=== PATIENT | male | born 1940 | race Caucasian/White ===

== ENCOUNTER 2018-05-08 18:07 | Inpatient (IN) | payer MEDICARE, BC ==
[~2018-05-08] VITALS: Ht 172.7 cm; Wt 74.8 kg
[2018-05-08] MEDS ORDERED: ASPI81TA31 PO (18:24)
[2018-05-08] MEDS ORDERED: ATOR40TA PO (18:24)
[2018-05-08] MEDS ORDERED: OLME1TAB34 PO (18:24)
[2018-05-08] MEDS ORDERED: LANS30CA56 PO (18:24)
[2018-05-08] MEDS ORDERED: ALPR0.5T8 PO (18:24)
[2018-05-08] MEDS ORDERED: LORA2TAB95 PO (18:24)
[2018-05-08] MEDS ORDERED: SILO8CAP PO (18:24)
[2018-05-08] MEDS ORDERED: CARV12.5 PO (18:24)
--- NOTE | 2018-05-08 18:33 | NUR ---
Dr Amin at the bedside for MSE.
[2018-05-08] MEDS ORDERED: HYDROMORPHONE 1 MG/1 ML DISP.SYRIN ONE ×2 (18:41→20:57)
[2018-05-08] MEDS ORDERED: ONDANSETRON 4 MG/2 ML VIAL ONE (18:41)
[2018-05-08] MEDS ORDERED: ONDANSETRON 4 MG/2 ML VIAL IV ONE (18:45)
[2018-05-08] MEDS ORDERED: IV NORMAL SALINE 1000 ML BAG IV ONE (18:45)
[2018-05-08] MEDS ORDERED: HYDROMORPHONE 1 MG/1 ML DISP.SYRIN IV ONE ×2 (18:45→21:00)
[2018-05-08 18:48] LABS: BASOPHILS % (AUTO) 0.4 % (0.0-2.0); EOSINOPHILS % (AUTO) 0.3 % (0.0-7.0); HEMATOCRIT 37.4 % (36.7-47.1); HEMOGLOBIN 13.1 g/dL (12.5-16.3); LYMPHOCYTES # (AUTO) 0.6 K/uL (20.0-40.0); LYMPHOCYTES % (AUTO) 8.3 % (20.5-51.5); MEAN CORPUSCULAR HEMOGLOBIN 35.3 uug (23.8-33.4); MEAN CORPUSCULAR HGB CONC 35 g/dL (32.5-36.3); MEAN CORPUSCULAR VOLUME 100.7 fL (73.0-96.2); MONOCYTES # (AUTO) 0.7 K/uL (2.0-10.0); MONOCYTES % (AUTO) 9.5 % (0.0-11.0); NEUTROPHILS % (AUTO) 81.5 % (38.5-71.5); PLATELET COUNT (AUTO) 248 K/uL (152-348); RED BLOOD CELL COUNT(AUTO) 3.72 MIL/uL (4.06-5.63); WHITE BLOOD COUNT (AUTO) 7.3 K/uL (3.6-10.2)
[2018-05-08 18:53] LABS: CARBON DIOXIDE 25 mmol/L (21-32); CHLORIDE 92 mmol/L (98-107); GLUCOSE 118 mg/dL (74-106); POTASSIUM 3.7 mmol/L (3.5-5.1); UREA NITROGEN, BLOOD 10 mg/dL (7-18)
--- NOTE | 2018-05-08 18:55 | NUR ---
Pt out of ER for CT.
[2018-05-08 18:59] LABS: ALANINE AMINOTRANSFERASE 28 U/L (16-63); ALKALINE PHOSPHATASE 75 U/L (50-136); ASPARTATE AMINOTRANSFERASE 30 U/L (15-37); BILIRUBIN,DIRECT 0.2 mg/dL (0.0-0.2); BILIRUBIN,TOTAL 0.8 mg/dL (0.2-1.0); LIPASE 146 U/L (73-393); TOTAL PROTEIN, SERUM 7.7 g/dL (6.4-8.2)
--- NOTE | 2018-05-08 19:10 | NUR ---
REPORT RECEIVED FROM [facility] NURSEVANSEA
--- NOTE | 2018-05-08 20:22 | NUR ---
CALL PLACED TO GENERAL SURGEON MD BARRON
[2018-05-08] MEDS ORDERED: LIDOCAINE VISCUS 2% 15 ML UDC MM ONE (20:30)
[2018-05-08] MEDS ORDERED: LIDOCAINE 4% TOPICAL 50 ML BOTTLE TP ONE (20:30)
[2018-05-08] MEDS ORDERED: LIDOCAINE 4% TOPICAL 50 ML BOTTLE ONE (20:37)
[2018-05-08] MEDS ORDERED: LIDOCAINE VISCUS 2% 15 ML UDC ONE (20:37)
--- NOTE | 2018-05-08 20:50 | NUR ---
NG TUBE PLACED AND SET TO LOW INTERMITTENT SUCTION PER MD VERBAL ORDER.
--- NOTE | 2018-05-08 21:10 | NUR ---
REPORT GIVEN TO [facility] NURSEABIEL
[2018-05-08 21:16] LABS: *BILIRUBIN,URIN NEGATIVE (NEGATIVE); *BLOOD, URINE NEGATIVE (NEGATIVE); *CLARITY,URINE CLEAR (CLEAR); *COLOR,URINE YELLOW (YELLOW); *KETONES,URINE 2+ (NEGATIVE); *PROTEIN,URINE 2+ (NEGATIVE); *UROBILINOGEN,URINE 0.2 E.U./dl (NORMAL); LEUKOCYTE ESTERASE ,URINE NEGATIVE (NEGATIVE); NITRITE, URINE NEGATIVE (NEGATIVE); PH,URINE 6.5 (5.0-8.0); UGLUCOSE NEGATIVE (NEGATIVE)
[2018-05-08 21:26] LABS: MUCUS,URINE FEW /LPF (0-FEW); WBC,URINE 0-3 /HPF (0-3)
--- NOTE | 2018-05-08 21:30 | NUR ---
Pt. admitted to [facility], under care of Dr. SMITH Belongs List completed
[2018-05-08 22:04] VITALS: BP 147/94
[2018-05-08] MEDS ORDERED: ONDANSETRON 4 MG/2 ML VIAL IV PRN (22:15)
[2018-05-08] MEDS ORDERED: MORPHINE SULFATE 2 MG/1 ML DISP.SYRIN IV PRN (22:15)
[2018-05-08] MEDS ORDERED: HYDROCODONE/APAP 5-325MG TABLET PO PRN (22:15)
[2018-05-08] MEDS ORDERED: MAGNESIUM HYDROXIDE 30 ML LIQUID UDC PO PRN (22:15)
[2018-05-08] MEDS ORDERED: Z GUARD REMEDY PASTE 57 GM TUBE TOP PRN (22:15)
[2018-05-08] MEDS ORDERED: ZOLPIDEM 5 MG TABLET PO PRN (22:15)
[2018-05-08] MEDS ORDERED: ACETAMINOPHEN 325 MG TABLET PO PRN (22:15)
[2018-05-08] MEDS ORDERED: Medication Not On Formulary EA (Lorazepam (Ativan) 2 MG) PO SCH (22:15)
[2018-05-08] MEDS ORDERED: ALPRAZOLAM 0.5 MG TABLET PO SCH (22:15)
--- NOTE | 2018-05-08 22:35 | NUR ---
NGT hooked to low intermittent wall suction as ordered. Moderate amount light yellow to greenish color drainage noted.
[2018-05-08] MEDS: IV NS 1000 ML 1,000 ML IV SCH (23:42)
--- NOTE | 2018-05-08 23:43 | NUR ---
Kept NPO for possible procedure in AM, IVF NS at 100 ml/hr started. Ativan 1mg IVP adm per patient request. Kept comfortable. Assisted w/ all needs. Urinal at bedside.
--- NOTE | 2018-05-09 01:00 | NUR ---
patient sleeping comfortably, NGT to LIS in place.
[2018-05-09 05:01] VITALS: BP 156/75
--- NOTE | 2018-05-09 05:24 | NUR ---
Patient awake, NG-tube accidentally got dislodged, patient refused to have it re-inserted not unless liquid Viscus lidocaine be used so it will be painless. Paged Dr. Dover, received orders & carried out. Kept NPO, vital signs WNL.
[2018-05-09] MEDS ORDERED: LIDOCAINE 2% (UROJET) 10 ML JELLY MM ONE (05:35)
[2018-05-09 05:54] LABS: BASOPHILS % (AUTO) 0.6 % (0.0-2.0); EOSINOPHILS % (AUTO) 0.6 % (0.0-7.0); HEMATOCRIT 31.5 % (36.7-47.1); HEMOGLOBIN 11.2 g/dL (12.5-16.3); LYMPHOCYTES # (AUTO) 0.5 K/uL (20.0-40.0); LYMPHOCYTES % (AUTO) 7.3 % (20.5-51.5); MEAN CORPUSCULAR HEMOGLOBIN 35.4 uug (23.8-33.4); MEAN CORPUSCULAR HGB CONC 35 g/dL (32.5-36.3); MEAN CORPUSCULAR VOLUME 99.8 fL (73.0-96.2); MONOCYTES # (AUTO) 0.9 K/uL (2.0-10.0); MONOCYTES % (AUTO) 11.5 % (0.0-11.0); PLATELET COUNT (AUTO) 214 K/uL (152-348); RED BLOOD CELL COUNT(AUTO) 3.16 MIL/uL (4.06-5.63); WHITE BLOOD COUNT (AUTO) 7.5 K/uL (3.6-10.2)
[2018-05-09] MEDS ORDERED: LIDOCAINE VISCUS 2% 15 ML UDC MM SCH (06:00)
[2018-05-09 06:18] LABS: CARBON DIOXIDE 26 mmol/L (21-32); CHLORIDE 96 mmol/L (98-107); CHOLESTEROL 126 mg/dL (<200); GLUCOSE 111 mg/dL (74-106); HDL CHOLESTEROL 74 mg/dL (40-60); MAGNESIUM 1.3 mg/dL (1.8-2.4); PHOSPHOROUS 3.6 mg/dL (2.5-4.9); POTASSIUM 3.3 mmol/L (3.5-5.1); TRIGLYCERIDES 46 MG/DL (30-150); UREA NITROGEN, BLOOD 10 mg/dL (7-18)
--- NOTE | 2018-05-09 06:21 | NUR ---
Re-insertion of NGT Fr 18 done. STAT chest Xray was ordered for placement.
--- NOTE | 2018-05-09 06:30 | NUR ---
Placed back on NGT to LIS. No acute resp distress, vital signs WNL.
--- NOTE | 2018-05-09 07:30 | NUR ---
Awake, alert, oriented x 4. NGT to LIS with brownish output. Patient vernalized passing gas with hypoactive bowel sounds. NPO maintained. IVF infusing. For small bowel series.
[2018-05-09] MEDS ORDERED: DIATR MEGLU/DIATRIZOATE SODIUM 120 ML BOTTLE ONE (08:32)
[2018-05-09] MEDS: PANTOPRAZOLE SODIUM 40 MG TABLET.DR PO SCH (08:45)
[2018-05-09] MEDS ORDERED: MORPHINE SULFATE 4 MG/1 ML DISP.SYRIN IV PRN (08:45)
[2018-05-09] MEDS: IV NS 1000 ML 1,000 ML IV SCH (08:47)
[2018-05-09] MEDS ORDERED: Medication Not On Formulary EA (Olmesartan Med/Amlodipine/Hctz (Tribenzor 40-10-25 Mg Ta PO SCH (09:00)
[2018-05-09] MEDS ORDERED: Medication Not On Formulary EA (Lansoprazole 30 MG) PO SCH (09:00)
[2018-05-09] MEDS ORDERED: Medication Not On Formulary EA (Silodosin (Rapaflo) 8 MG) PO SCH (09:00)
[2018-05-09] MEDS: CARVEDILOL 12.5 MG TABLET PO SCH ×2 (09:00→17:00)
[2018-05-09] MEDS: ASPIRIN 81 MG TAB.CHEW PO SCH (09:00)
--- NOTE | 2018-05-09 09:00 | NUR ---
Small bowel series started. NGT clamped.
[2018-05-09] MEDS: MAGNESIUM SULFATE/D5W 100 ML IV SCH ×4 (09:33→13:35)
[2018-05-09 11:02] VITALS: BP 182/89
[2018-05-09] MEDS ORDERED: hydrALAZINE HCL 20 MG/1 ML VIAL IV ONE ×2 (11:30→12:00)
--- NOTE | 2018-05-09 12:20 | NUR ---
Elevated BP, Hydralazine 10 mg IV given.
[2018-05-09 15:42] VITALS: BP 178/89
[2018-05-09] MEDS: POTASSIUM CHLORIDE 50 ML IV SCH ×2 (15:59→17:03)
--- NOTE | 2018-05-09 16:00 | NUR ---
Dr. Matias seen patient with orders to connect back to suction to low continuous suction, able to drain 2 L greenish output. Last x ray of small bowel series done.
[2018-05-09] MEDS: hydrALAZINE HCL 20 MG/1 ML VIAL IV PRN ×2 (17:43→23:53)
--- NOTE | 2018-05-09 17:43 | NUR ---
Still with elevated BP. Small bowel series still with SBO, maintained on NPO. Hydralazine PRN given as ordered
--- NOTE | 2018-05-09 18:35 | NUR ---
NPO maintained. NGT to low continuous suction. IVF infusing. SCD applied to BLE
[2018-05-09 19:47] VITALS: BP 163/81
--- NOTE | 2018-05-09 20:00 | NUR ---
Patient received at bed, AAO X4. No sign of acute distress or SOB noted. Has NG tube, low continuous suctioning, draining green liquid. No complain of pain. IV fluids running on LT arm. SCD pump in placed. Continue to monitor.
[2018-05-09] MEDS ORDERED: ATORVASTATIN 40 MG TABLET PO SCH (21:00)
[2018-05-09] MEDS: LORAZEPAM 2 MG/1 ML VIAL IV PRN (22:09)
[2018-05-10] VITALS (7 sets, daily range): BP systolic 136–171; BP diastolic 62–80
[2018-05-10] MEDS: IV NS 1000 ML 1,000 ML IV SCH ×2 (00:54→05:30)
[2018-05-10 06:10] LABS: BASOPHILS % (AUTO) 0.2 % (0.0-2.0); HEMATOCRIT 38.2 % (36.7-47.1); HEMOGLOBIN 13.4 g/dL (12.5-16.3); LYMPHOCYTES # (AUTO) 0.7 K/uL (20.0-40.0); LYMPHOCYTES % (AUTO) 6.5 % (20.5-51.5); MEAN CORPUSCULAR HEMOGLOBIN 35.7 uug (23.8-33.4); MEAN CORPUSCULAR HGB CONC 35 g/dL (32.5-36.3); NEUTROPHILS # (AUTO) 8.4 K/uL (1.8-8.9); NEUTROPHILS % (AUTO) 83.3 % (38.5-71.5); PLATELET COUNT (AUTO) 274 K/uL (152-348); RED BLOOD CELL COUNT(AUTO) 3.74 MIL/uL (4.06-5.63); WHITE BLOOD COUNT (AUTO) 10.1 K/uL (3.6-10.2)
[2018-05-10] MEDS: hydrALAZINE HCL 20 MG/1 ML VIAL IV PRN (06:10)
[2018-05-10 06:13] LABS: CARBON DIOXIDE 25 mmol/L (21-32); CHLORIDE 99 mmol/L (98-107); GLUCOSE 123 mg/dL (74-106); MAGNESIUM 1.9 mg/dL (1.8-2.4); POTASSIUM 3.7 mmol/L (3.5-5.1); UREA NITROGEN, BLOOD 11 mg/dL (7-18)
[2018-05-10] MEDS: PANTOPRAZOLE SODIUM 40 MG TABLET.DR PO SCH (06:15)
--- NOTE | 2018-05-10 06:28 | NUR ---
HYDRALAZINE IV GIVEN FOR ELEVATED BP X2 DURING SHIFT. STILL NPO. CONTINUE ON LOW CONTINUES SUCTION VIA NGT. NO C/O PAIN. AMBULATED IN THE HALLWAY.
--- NOTE | 2018-05-10 07:26 | NUR ---
IV FLUIDS STILL INFUSING.
[2018-05-10] MEDS: ASPIRIN 81 MG TAB.CHEW PO SCH (08:51)
[2018-05-10] MEDS: CARVEDILOL 12.5 MG TABLET PO SCH ×2 (08:51→10:21)
--- NOTE | 2018-05-10 09:24 | NUR ---
DR BARRON HERE AND REVIEWED THE KUB RESULT AND STATED THAT PATIENT IS SCHEDULED FOR SURGERY IN ABOUT AN HOUR TODAY.PATIENT AWARE AND WILL OBTAIN CONSCENT.
--- NOTE | 2018-05-10 10:25 | NUR ---
BETA BLOCKED GIVEN ORDERED BLOOD PRESSURE IS 162/79 WITH A SIP OF WATER AND NGT CLAMPED AT THIS TIME
[2018-05-10] MEDS ORDERED: FENTANYL CITRATE 100 MCG/2 ML AMPUL ONE (10:39)
[2018-05-10] MEDS ORDERED: SUCCINYLCHOLINE CHLORIDE 200 MG/10 ML VIAL ONE (10:39)
[2018-05-10] MEDS ORDERED: MIDAZOLAM HCL 2 MG/2 ML VIAL ONE (10:39)
[2018-05-10] MEDS ORDERED: ROCURONIUM BROMIDE 50 MG/5 ML VIAL ONE (10:39)
--- NOTE | 2018-05-10 10:45 | NUR ---
PATIENT PICKED UP BY BED TO THE SURGERY DEPT ORDERED PATIENTS IS HERE AND PATIENT GAVE HER HIS PHONE AND UX UI DESIGNER AND STATED WILL KEEP IT WITH HER AND WILL RETURN BACK TO HIM AFTER HIS SURGERY.
[2018-05-10] MEDS ORDERED: METRONIDAZOLE 500 MG/NS 100ML 100 ML IV ONE (11:45)
[2018-05-10] MEDS ORDERED: BUPIVACAINE 0.25% 30 ML VIAL ONE (11:58)
[2018-05-10] MEDS ORDERED: IV D5W-0.45% NS +20 KCL 1,000 ML IV ONE (12:22)
[2018-05-10] MEDS ORDERED: MORPHINE SULFATE 4 MG/1 ML DISP.SYRIN IV PRN (13:15)
--- NOTE | 2018-05-10 13:20 | NUR ---
PATIENT RETURNED FROM SURGERY BY BED TO HIS ROOM AWAKE ALERT AND ORIENTED ON O2 AT 2L/M BY NASAL CANULLA WITH NO SHORTNESS OF BREATH AT THIS TIME NGT REMAINS IN PLACE WITH ORDER TO CONTINUE TO LOW GOMCO SUCTIONING HE NOW HAS A BARAJAS CATH INTACT WITH RADHA COLORED URINE NO HEMATURIA AT THIS TIME HE HAS 3 SCOPES SITES WITH BAND AIDE C/D/I AT THIS TIME REMAIN NPO PATIENT INSTRUCTED AND EDUCATED ON INCENTIVE SPIROMETER ORDERED MADE COMFORTABLE AND WILL CONTINUE TO OBSERVE.
--- NOTE | 2018-05-10 13:30 | NUR ---
NEW ORDERS PER DR. BARRON: INCENTIVE SPIROMETRY Q1HR WHILE AWAKE, BARAJAS CATHETER TO GRAVITY, KUB SCHEDULED AT 1800 HRS TONIGHT (05/10/18), CBC AND BMP PREVIOUSLY ORDERED ALREADY FOR TOMORROW (05/11/18) IN AM.
[2018-05-10] MEDS ORDERED: PROPOFOL 200 MG/20 ML BOTTLE IV ONE (14:29)
[2018-05-10] MEDS ORDERED: CEFAZOLIN 1 G VIAL MC ONE (14:29)
[2018-05-10] MEDS ORDERED: IV NORMAL SALINE 1000 ML BAG IV ONE (14:29)
[2018-05-10] MEDS ORDERED: LIDOCAINE HCL 2% 20 ML VIAL MC ONE (14:29)
[2018-05-10] MEDS ORDERED: NEOSTIGMINE METHYLSULFATE 10 MG/10 ML VIAL IV ONE (14:29)
[2018-05-10] MEDS ORDERED: IV LACTATED RINGERS SOLUTION 1,000 ML BAG IV ONE (14:29)
[2018-05-10] MEDS ORDERED: ONDANSETRON 4 MG/2 ML VIAL IV ONE (14:29)
[2018-05-10] MEDS ORDERED: SEVOFLURANE 250 ML BOTTLE IH ONE (14:29)
[2018-05-10] MEDS ORDERED: GLYCOPYRROLATE 0.2 MG/ML VIAL MC ONE (14:29)
[2018-05-10] MEDS ORDERED: IRR NORMAL SALINE IRRIGATION 1,000 ML BOTTLE IR ONE (14:29)
[2018-05-10] MEDS ORDERED: EPHEDRINE SULFATE 50 MG/ML AMPUL MC ONE (14:29)
[2018-05-10] MEDS: IV D5W-0.45% NS +20 KCL 1,000 ML IV PRN ×2 (14:42→22:06)
[2018-05-10] MEDS: METOCLOPRAMIDE HCL 10 MG/2 ML VIAL IV SCH ×2 (17:06→23:05)
--- NOTE | 2018-05-10 17:07 | NUR ---
NGT REMAINS INTACT WITH GREENISH BILE DRAINAGE ORDERED PATIENT REMAINS NPO AT THIS TIME ORAL CARE WITH LEMON SWABS CONTINUE ON POST OP TEACHING WITH INCENTIVE SPIROMETER TURNING AND REPOSITIONING IVF IN PROGRESS ORDERED DENIES NAUSEA VOMITING OR PAIN AT THIS TIME WILL CONTINUE TO OBSERVE.
--- NOTE | 2018-05-10 18:50 | NUR ---
KUB COMPLETED ORDERED AND RESULTED WITH SLIGHT PROGRESSION.PATIENT DENIES NAUSEA OR VOMITING NGT REMAINS INTACT CONNECTED TO LOW GOMCO SUCTIONING.
--- NOTE | 2018-05-10 19:20 | NUR ---
RECEIVED PATIENT LYING IN BED. AAOX4. IN NO ACUTE DISTRESS. ON O2 AT 2LPM VIA NC. O2 SAT AT 95%. NGT TUBE INTACT AND PATENT ATTACHED TO INTERMITTENT SUCTION. PATIENT NPO. WITH SMALL MOUNT OF DRAINAGE NOTED. FC INTACT AND PATENT, DRAINING VIA GRAVITY. WITH SMALL AMOUNT OF RADHA URINE NOTED ON BARAJAS BAG. NEEDS ASSESSED AND ATTENDED TO. SAFETY MEASURE INITIATED AND CALL DUVAL WITHIN REACH. Addendum: 05/10/18 at 2111 by SABRA AJ RN IV SITE ON LEFT FOREARM INTACT AND PATENT. IVF INFUSING.
--- NOTE | 2018-05-10 20:39 | NUR ---
DR BARRON CALLED TO FOLLOW UP ON PATIENT CURRENT CONDITION. WITH ORDER TO REPEAT KUB IN AM TOMORROW AT 0700, DISCONTINUE NGT AND START PATIENT ON CLEAR LIQUID DIET. ALL ORDERS READ BACK, VERIFIED AND CARRIED OUT.
[2018-05-10] MEDS: LORAZEPAM 2 MG/1 ML VIAL IV PRN (22:01)
[2018-05-11 04:57] VITALS: BP 131/67
[2018-05-11] MEDS: IV D5W-0.45% NS +20 KCL 1,000 ML IV PRN (04:59)
[2018-05-11] MEDS: METOCLOPRAMIDE HCL 10 MG/2 ML VIAL IV SCH ×2 (05:12→12:00)
--- NOTE | 2018-05-11 06:06 | NUR ---
AAOX4. IN NO ACUTE DISTRESS. REPORTED SLEEPING BETTER LAST NIGHT. O2 SAT AT 93% ON RA.TOLERATING CLEAR LIQUID DIET. IV SITE ON LEFT FOREARM INTACT AND PATENT. IVF INFUSING. FC INTACT AND PATENT, DRAINING VIA GRAVITY. NEEDS ASSESSED AND ATTENDED TO. SAFETY MEASURE MAINTAINED AND CALL DUVAL WITHIN REACH.
[2018-05-11 06:40] LABS: BASOPHILS % (AUTO) 0.2 % (0.0-2.0); EOSINOPHILS % (AUTO) 0.2 % (0.0-7.0); HEMATOCRIT 28.3 % (36.7-47.1); LYMPHOCYTES # (AUTO) 0.4 K/uL (20.0-40.0); MEAN CORPUSCULAR HGB CONC 35 g/dL (32.5-36.3); MONOCYTES # (AUTO) 0.7 K/uL (2.0-10.0); NEUTROPHILS # (AUTO) 4.9 K/uL (1.8-8.9); NEUTROPHILS % (AUTO) 81.6 % (38.5-71.5); PLATELET COUNT (AUTO) 167 K/uL (152-348); RED BLOOD CELL COUNT(AUTO) 2.77 MIL/uL (4.06-5.63)
[2018-05-11 07:01] LABS: CARBON DIOXIDE 27 mmol/L (21-32); CHLORIDE 102 mmol/L (98-107); CREATININE 0.9 mg/dL (0.6-1.3); GLUCOSE 151 mg/dL (74-106); POTASSIUM 3.6 mmol/L (3.5-5.1); UREA NITROGEN, BLOOD 11 mg/dL (7-18)
--- NOTE | 2018-05-11 07:10 | NUR ---
TELEPHONE CALL TO DR BARRON AND INFORMED THAT PATIENT ONLY HAD URINE OUTPUT OF 150ML THE WHOLE SHIFT. DR BARRON WITH ORDER TO GIVE PATIENT 500ML OF NORMAL SALINE IV. ORDER READ BACK AND VERIFIED. INFORMED DAY SHIFT NURSE DEMETRIUS AND STATES UNDERSTANDING.
[2018-05-11] MEDS ORDERED: IV NORMAL SALINE 500 ML IV ONE (07:15)
--- NOTE | 2018-05-11 07:38 | NUR ---
RECEIVED PATIENT AWAKE ALERT AND ORIENTED STATED SLEPT BETTER LAST NOC DENIES PAIN OR DISCOMFORTS AT THIS TIME IVF NS BOLUS IS INFUSING ORDERED AT THIS TIME PATIENT IS ON ROOM AIR WITH NO SHORTNESS OF BREATH ABDOMINAL SCOP SITES REMAINS INTACT WITH NO DRAINAGE AT THIS TIME BARAJAS CATH WITH SCANTY AMOUNT OF URINE WILL OBSERVE OUTPUT AFTER THE BOLUS INFUSSION OF URINE OUTPUT ENCOURAGED INCENTIVE SPIROMETER USE WILL CONTINUE TO OBSERVE PT.
--- NOTE | 2018-05-11 10:42 | NUR ---
DR BARRON HERE TO SEE PATIENT STATED OK TO DISCONTINUE BARAJAS CATH STATED TO ADVANCE DIET TO CARDIAC REGULAR CONSISTENCY AND THAT PATIENT IS CLEARED FOR DISCHARGE WILL NOTIFY DR SMITH.
[2018-05-11 11:26] VITALS: BP 151/69
--- NOTE | 2018-05-11 12:00 | NUR ---
DR SMITH AWARE THAT DR BARRON HAS CLEARED PATIENT FOR DISCHARGE STATED OKAY WITH NO NEW ORDERS AT THIS TIME.
--- NOTE | 2018-05-11 13:55 | NUR ---
PATIENTS [facility] IS HERE AT THE BEDSIDE CONTINUE TO WAIT FOR DISCHARGE ORDER FROM DR SMITH.
--- NOTE | 2018-05-11 14:30 | NUR ---
PATIENT DISCHARGED PICKED UP BY HIS [facility] IN SATISFACTORY CONDITION WITH DISCHARGE INSTRUCTIONS PATIENT HAS NO NEW MEDICATIONS HAS VOIDED INSTRUCTED TO FOLLOW UP WITH DR BECKWITH AND HIS PRIMARY DOCTOR AND HE EXPRESSED UNDERSTANDING PHARMACY AWARE OF THE DISCHARGE.
== END 2018-05-11 14:30 | disposition home or self-care (01) | DRG 336 ==
LOC: ER 18:10 → MED 21:18
PROVIDERS: ADMIT Family Medicine; ATTEND Family Medicine
PROC: 0D9670Z Drainage of Stomach with Drainage Device, Via Natural or Artificial Opening (ICD-10-PCS; 2018-05-10)
PROC: 0DN84ZZ Release Small Intestine, Percutaneous Endoscopic Approach (ICD-10-PCS; principal; 2018-05-10 10:40)
DX: K56.52 Intestinal adhesions [bands] with complete obstruction (principal); E87.1 Hypo-osmolality and hyponatremia; E78.5 Hyperlipidemia, unspecified; E83.52 Hypercalcemia; F41.9 Anxiety disorder, unspecified; I10 Essential (primary) hypertension; R73.03 Prediabetes; N40.0 Benign prostatic hyperplasia without lower urinary tract symptoms; I70.0 Atherosclerosis of aorta; Z90.49 Acquired absence of other specified parts of digestive tract; Z79.82 Long term (current) use of aspirin; Z79.899 Other long term (current) drug therapy
CPT/HCPCS: 36415; 70030-TC; 71045; 74018; 74250; 83690; 83735; 84100; 85025; 85730; 86850; 86900; 86901; 93005; A4217; A4663; J0330; J0360; J0690; J1170; J2060; J2250; J2270; J2405; J2710; J2765; J3010; J3475; J3480; J3490; J7030; J7040; J7120; Q9963

== ENCOUNTER 2018-06-04 00:10 | Inpatient (IN) | payer MEDICARE, BC ==
[~2018-06-04] VITALS: Ht 172.7 cm; Wt 73.9 kg
[~2018-06-04 00:10] MED LIST: ALPR0.5T8 PO; ASPI81TA31 PO; ATOR40TA PO; CARV12.5 PO; LANS30CA56 PO; LORA2TAB95 PO; OLME1TAB34 PO; SILO8CAP PO
--- NOTE | 2018-06-04 00:31 | NUR ---
admitted to er rm 2b ambulatory accompanied by , c/o nausea & abd. pain x1 day.dr alvarado seen & evaluated pt.
[2018-06-04] MEDS ORDERED: ONDANSETRON 4 MG/2 ML VIAL ONE ×2 (00:42→03:07)
[2018-06-04] MEDS ORDERED: HYDROMORPHONE 2 MG/1 ML DISP.SYRIN ONE ×2 (00:42→03:06)
[2018-06-04] MEDS ORDERED: IV NORMAL SALINE 1000 ML BAG IV ONE (00:45)
[2018-06-04] MEDS ORDERED: HYDROMORPHONE 1 MG/1 ML DISP.SYRIN IV ONE (00:45)
[2018-06-04] MEDS ORDERED: ONDANSETRON 4 MG/2 ML VIAL IV ONE (00:45)
[2018-06-04 00:47] LABS: BASOPHILS % (AUTO) 0.4 % (0.0-2.0); EOSINOPHILS % (AUTO) 0.1 % (0.0-7.0); HEMATOCRIT 40.4 % (36.7-47.1); HEMOGLOBIN 13.8 g/dL (12.5-16.3); LYMPHOCYTES # (AUTO) 0.7 K/uL (20.0-40.0); MEAN CORPUSCULAR HEMOGLOBIN 33.6 uug (23.8-33.4); MEAN CORPUSCULAR HGB CONC 34 g/dL (32.5-36.3); MEAN CORPUSCULAR VOLUME 98.3 fL (73.0-96.2); MONOCYTES # (AUTO) 0.8 K/uL (2.0-10.0); NEUTROPHILS % (AUTO) 84.5 % (38.5-71.5); PLATELET COUNT (AUTO) 294 K/uL (152-348); RED BLOOD CELL COUNT(AUTO) 4.11 MIL/uL (4.06-5.63); WHITE BLOOD COUNT (AUTO) 9.4 K/uL (3.6-10.2)
[2018-06-04 01:00] LABS: ALANINE AMINOTRANSFERASE 35 U/L (16-63); ALKALINE PHOSPHATASE 83 U/L (50-136); ASPARTATE AMINOTRANSFERASE 15 U/L (15-37); BILIRUBIN,DIRECT 0.2 mg/dL (0.0-0.2); CARBON DIOXIDE 24 mmol/L (21-32); CHLORIDE 97 mmol/L (98-107); CREATININE 1.7 mg/dL (0.6-1.3); GLUCOSE 170 mg/dL (74-106); LIPASE 309 U/L (73-393); UREA NITROGEN, BLOOD 29 mg/dL (7-18)
--- NOTE | 2018-06-04 01:23 | NUR ---
to xray for ct scan of abd./pelvis via gurney.
--- NOTE | 2018-06-04 01:42 | NUR ---
back to rm. conncted to bedside monitoring.
--- NOTE | 2018-06-04 02:31 | NUR ---
PAGED ePPIC PANEL. WAITING FOR DAMARI ROBBINS WOOD ROUTER HAND TO CALL BACK
--- NOTE | 2018-06-04 02:34 | NUR ---
DR PARKER SPEAKING WITH DAMARI ROBBINS NP
--- NOTE | 2018-06-04 02:50 | NUR ---
report given to dandre martinez.
[2018-06-04] MEDS ORDERED: HYDROMORPHONE 2 MG/1 ML DISP.SYRIN IV PRN (03:00)
[2018-06-04] MEDS ORDERED: ONDANSETRON 4 MG/2 ML VIAL IV PRN ×2 (03:00→04:00)
--- NOTE | 2018-06-04 03:20 | NUR ---
transfered pt to telemetry rm 217 via [facility].
--- NOTE | 2018-06-04 03:30 | NUR ---
PT WAS BROUGHT IN TO FLOOR VIA GURNEY. ADMITTED TO TELEMETRY UNDER CHRISTIAN ROBBINS NP. INITIATE ADMISSION ASSESSMENTS. WILL CALL FOR ORDERS.
[2018-06-04 03:42] VITALS: BP 111/68
[2018-06-04] MEDS ORDERED: ACETAMINOPHEN 325 MG TABLET PO PRN (04:00)
[2018-06-04] MEDS ORDERED: IV NS 1000 ML 1,000 ML IV PRN (04:00)
[2018-06-04] MEDS ORDERED: HYDROMORPHONE 1 MG/1 ML DISP.SYRIN IV PRN ×2 (04:00→12:45)
[2018-06-04] MEDS ORDERED: Z GUARD REMEDY PASTE 57 GM TUBE TOP PRN (04:00)
[2018-06-04] MEDS ORDERED: MAGNESIUM HYDROXIDE 30 ML LIQUID UDC PO PRN (04:00)
[2018-06-04] MEDS ORDERED: ZOLPIDEM 5 MG TABLET PO PRN (04:00)
--- NOTE | 2018-06-04 06:12 | NUR ---
SR ON TELE, NO C/O PAIN AT THIS TIME. IV FLUID INFUSING. SAFETY MEASURES MAINTAINED.
[2018-06-04 11:09] VITALS: BP 137/75
[2018-06-04] MEDS: HYDROMORPHONE 2 MG/1 ML DISP.SYRIN IV PRN ×3 (13:26→23:01)
[2018-06-04] MEDS ORDERED: hydrALAZINE HCL 20 MG/1 ML VIAL IV PRN (14:30)
[2018-06-04] MEDS ORDERED: LORAZEPAM 2 MG/1 ML VIAL IV PRN (14:45)
[2018-06-04 15:25] VITALS: BP 116/71
[2018-06-04] MEDS: IV LACTATED RINGERS SOLUTION 1,000 ML IV PRN (16:05)
--- NOTE | 2018-06-04 18:42 | NUR ---
PT IS RESTING IN BED WITH NO SIGNS OF RESPIRATORY DISTRESS, PAIN MANAGED WITH DILAUDID, COMPLIANT WITH MEDICATION, REMAINS NPO. CONTINUE TO MONITOR PT.
--- NOTE | 2018-06-04 19:20 | NUR ---
RECEIVED PATIENT LYING IN BED. AAOX4. REPORTED ABD PAIN STARTED TO DECREASE AT THIS TIME. WAS GIVEN DILAUDID BY DAY SHIFT NURSE AROUND 1900. IN NO ACUTE DISTRESS. VS WNL. IV SITE ON LEFT FOREARM INTACT AND PATENT. IVF INFUSING. NEEDS ASSESSED AND ATTENDED TO. SAFETY MEASURE INITIATED AND CALL DUVAL WITHIN REACH. Addendum: 06/04/18 at 2235 by SABRA AJ RN NSR ON TELE AT 80/MIN.
[2018-06-04] MEDS ORDERED: LORAZEPAM 2 MG/1 ML VIAL IV ONE (19:40)
[2018-06-04 19:54] VITALS: BP 122/74
[2018-06-04] MEDS ORDERED: LIDOCAINE 4% TOPICAL 50 ML BOTTLE TP ONE (20:00)
[2018-06-04] MEDS ORDERED: LIDOCAINE VISCUS 2% 15 ML UDC MM ONE (20:00)
--- NOTE | 2018-06-04 20:00 | NUR ---
DOCTOR BEATRICE INTO VISIT WITH ORDER TO PLACE NGT ON PATIENT USING LIDOCAINE SOLUTION AND VISCUS FOR INSERTION. KUB AFTER INSERTION. ORDER NOTED AND WILL CARRY OUT.
--- NOTE | 2018-06-04 20:46 | NUR ---
TELEOPHONE CALL FROM DOCTOR BARRON AND INFORMED THIS NURSE THAT PT WILL HAVE PROCEDURE: LAPAROSCOPY WITH POSSIBLE LAPAROTOMY AND POSSIBLE BOWEL RESECTION TOMORROW AM AT 10AM, UNLESS THE NGT FIXES THE OBSTRUCTION AND PATIENT HAS A BOWEL MOVEMENT. INFORMED PATIENT OF UPCOMING PROCEDURE, CONSENT SIGNED BY PATIENT.
[2018-06-04] MEDS: CEFAZOLIN 1 G in PREMIXED 1 EACH IV SCH (21:15)
[2018-06-04] MEDS: METRONIDAZOLE 500 MG/NS 100ML 500 MG in PREMIXED 1 EACH IV SCH (21:52)
[2018-06-05] VITALS (7 sets, daily range): BP systolic 118–155; BP diastolic 74–98
[2018-06-05] MEDS: HYDROMORPHONE 2 MG/1 ML DISP.SYRIN IV PRN ×3 (03:52→21:31)
[2018-06-05] MEDS: CEFAZOLIN 1 G in PREMIXED 1 EACH IV SCH ×3 (05:04→21:08)
[2018-06-05] MEDS: METRONIDAZOLE 500 MG/NS 100ML 500 MG in PREMIXED 1 EACH IV SCH ×3 (05:39→21:52)
--- NOTE | 2018-06-05 06:11 | NUR ---
AAOX4. ABDOMINAL PAIN MANAGE WITH DILAUDID PRN PER ORDER. IN NO ACUTE DISTRESS. VS WNL. NO ADVERSE REACTION NOTED FROM IV ABX. NGT INTACT AND PATENT ATTACHED TO INTERMITTENT SUCTION WITH MINIMAL DRAINAGE NOTED ON NG TUBING. IV SITE ON LEFT FOREARM INTACT AND PATENT. IVF INFUSING. NEEDS ASSESSED AND ATTENDED TO. NPO STATUS. SAFETY MEASURE MAINTAINED AND CALL DUVAL WITHIN REACH.
[2018-06-05 06:47] LABS: BASOPHILS % (AUTO) 0.2 % (0.0-2.0); EOSINOPHILS % (AUTO) 0.1 % (0.0-7.0); HEMATOCRIT 35.3 % (36.7-47.1); HEMOGLOBIN 12.4 g/dL (12.5-16.3); LYMPHOCYTES # (AUTO) 0.5 K/uL (20.0-40.0); LYMPHOCYTES % (AUTO) 6.3 % (20.5-51.5); MEAN CORPUSCULAR HEMOGLOBIN 34.6 uug (23.8-33.4); MEAN CORPUSCULAR HGB CONC 35 g/dL (32.5-36.3); MEAN CORPUSCULAR VOLUME 98.3 fL (73.0-96.2); MONOCYTES # (AUTO) 0.9 K/uL (2.0-10.0); MONOCYTES % (AUTO) 11.6 % (0.0-11.0); NEUTROPHILS % (AUTO) 81.8 % (38.5-71.5); PLATELET COUNT (AUTO) 224 K/uL (152-348); RED BLOOD CELL COUNT(AUTO) 3.59 MIL/uL (4.06-5.63); WHITE BLOOD COUNT (AUTO) 7.3 K/uL (3.6-10.2)
[2018-06-05 07:08] LABS: CARBON DIOXIDE 25 mmol/L (21-32); CHLORIDE 99 mmol/L (98-107); CHOLESTEROL 108 mg/dL (<200); CREATININE 1.2 mg/dL (0.6-1.3); GLUCOSE 132 mg/dL (74-106); HDL CHOLESTEROL 53 mg/dL (40-60); MAGNESIUM 1.5 mg/dL (1.8-2.4); PHOSPHOROUS 4.1 mg/dL (2.5-4.9); POTASSIUM 4.2 mmol/L (3.5-5.1); TRIGLYCERIDES 88 MG/DL (30-150); UREA NITROGEN, BLOOD 27 mg/dL (7-18)
--- NOTE | 2018-06-05 07:25 | NUR ---
PATIENT AWAKE AT THIS TIME. NPO STATUS FOR SURGERY SCHEDULED FOR 10AM. CONSENT SIGNED. STABLE CONDITION, NG-TUBE IN PLACE, INTERMITTENT SUCTIONING, NO RESIDUAL SEEN AT THIS TIME. COMPLAINS OF ABDOMINAL PAIN. IVF RUNNING. WILL CONTINUE TO MONITOR.
[2018-06-05] MEDS: IV LACTATED RINGERS SOLUTION 1,000 ML IV PRN (08:10)
[2018-06-05] MEDS ORDERED: ROCURONIUM BROMIDE 50 MG/5 ML VIAL ONE ×2 (09:49→09:51)
[2018-06-05] MEDS ORDERED: HYDROMORPHONE 2 MG/1 ML DISP.SYRIN ONE (09:49)
[2018-06-05] MEDS ORDERED: BUPIVACAINE 0.25% 30 ML VIAL ONE (10:38)
[2018-06-05] MEDS ORDERED: EPHEDRINE SULFATE 50 MG/ML AMPUL MC ONE (12:49)
[2018-06-05] MEDS ORDERED: DEXAMETHASONE SOD PHOSPHATE 4 MG INJ IV ONE (12:49)
[2018-06-05] MEDS ORDERED: IV LACTATED RINGERS SOLUTION 1,000 ML BAG IV ONE (12:49)
[2018-06-05] MEDS ORDERED: PROPOFOL 200 MG/20 ML BOTTLE IV ONE (12:49)
[2018-06-05] MEDS ORDERED: KETOROLAC TROMETHAMINE 30 MG INJ IM ONE (12:49)
[2018-06-05] MEDS ORDERED: SEVOFLURANE 250 ML BOTTLE IH ONE (12:49)
[2018-06-05] MEDS ORDERED: ONDANSETRON 4 MG/2 ML VIAL IV ONE (12:49)
[2018-06-05] MEDS ORDERED: NEOSTIGMINE METHYLSULFATE 10 MG/10 ML VIAL IV ONE (12:49)
[2018-06-05] MEDS ORDERED: SUCCINYLCHOLINE CHLORIDE 200 MG/10 ML VIAL MC ONE (12:49)
[2018-06-05] MEDS ORDERED: GLYCOPYRROLATE 0.2 MG/ML VIAL MC ONE (12:49)
[2018-06-05] MEDS ORDERED: LIDOCAINE HCL 2% 20 ML VIAL MC ONE (12:49)
--- NOTE | 2018-06-05 13:00 | NUR ---
PATIENT IN STABLE CONDITION AFTER ARRIVING FROM PROCEDURE. NO MORE COMPLAINTS OF ABDOMINAL PAIN FROM PATIENT. VITAL SIGNS STABLE. IVF RUNNING. ON CLEAR LIQUID DIET AT THIS TIME. WILL ADVANCE TO SOFT DIET WHEN PATIENT HAS BM PER MD ORDERS.
[2018-06-05] MEDS: MAGNESIUM SULFATE/D5W 100 ML IV SCH ×2 (13:23→18:12)
--- NOTE | 2018-06-05 17:14 | NUR ---
PATIENT AMBULATED AROUND THE UNIT 3X. NO COMPLAINTS OF PAIN. HAS NOT YET PASSED GAS OR HAD BM. VITAL SIGNS STABLE. IVF RUNNING .ABX ADMINISTERED. MAGNESIUM WILL BE SUPPLEMENTED.
--- NOTE | 2018-06-05 19:20 | NUR ---
RECEIVED PATIENT LYING IN BED. AAOX4. DENIES ANY PAIN OR SOB AT THIS TIME. IN NO ACUTE DISTRESS. IV SITE ON RIGHT FOREARM INTACT AND PATENT. IVF INFUSING. NSR ON TELE AT 88/MIN. INCISION SITE ON ABDOMINAL AREA WITH DRESSING INTACT. NEEDS ASSESSED AND ATTENDED TO. SAFETY MEASURE INITIATED AND CALL DUVAL WITHIN REACH.
[2018-06-06 00:27] VITALS: BP 136/81
[2018-06-06] MEDS: CEFAZOLIN 1 G in PREMIXED 1 EACH IV SCH (05:01)
[2018-06-06 05:25] VITALS: BP 132/69
[2018-06-06] MEDS: METRONIDAZOLE 500 MG/NS 100ML 500 MG in PREMIXED 1 EACH IV SCH (05:35)
[2018-06-06 06:09] LABS: BASOPHILS % (AUTO) 0.1 % (0.0-2.0); EOSINOPHILS % (AUTO) 0.1 % (0.0-7.0); HEMATOCRIT 26.8 % (36.7-47.1); HEMOGLOBIN 9.6 g/dL (12.5-16.3); LYMPHOCYTES # (AUTO) 0.5 K/uL (20.0-40.0); LYMPHOCYTES % (AUTO) 6.9 % (20.5-51.5); MEAN CORPUSCULAR HGB CONC 36 g/dL (32.5-36.3); MEAN CORPUSCULAR VOLUME 97.6 fL (73.0-96.2); MONOCYTES # (AUTO) 0.8 K/uL (2.0-10.0); MONOCYTES % (AUTO) 11.5 % (0.0-11.0); NEUTROPHILS # (AUTO) 5.8 K/uL (1.8-8.9); NEUTROPHILS % (AUTO) 81.4 % (38.5-71.5); PLATELET COUNT (AUTO) 165 K/uL (152-348); RED BLOOD CELL COUNT(AUTO) 2.74 MIL/uL (4.06-5.63); WHITE BLOOD COUNT (AUTO) 7.2 K/uL (3.6-10.2)
--- NOTE | 2018-06-06 06:14 | NUR ---
AAOX4. ABDOMINAL PAIN MANAGE WITH DILAUDID PRN PER ORDER. DRESSING ON ABD AREA STILL INTACT. IN NO ACUTE DISTRESS. VS WNL. IV SITE ON RIGHT FOREARM INTACT AND PATENT. IVF INFUSING. NO ADVERSE REACTION NOTED FROM IV ABX. NEEDS ASSESSED AND ATTENDED TO. SAFETY MEASURE MAINTAINED AND CALL DUVAL WITHIN REACH.
[2018-06-06 06:33] LABS: CARBON DIOXIDE 26 mmol/L (21-32); CHLORIDE 99 mmol/L (98-107); CREATININE 1.1 mg/dL (0.6-1.3); GLUCOSE 115 mg/dL (74-106); MAGNESIUM 1.9 mg/dL (1.8-2.4); PHOSPHOROUS 2.9 mg/dL (2.5-4.9); POTASSIUM 4.2 mmol/L (3.5-5.1); UREA NITROGEN, BLOOD 25 mg/dL (7-18)
--- NOTE | 2018-06-06 07:22 | NUR ---
PATIENT RESTING COMFORTABLY IN BED AT THIS TIME. VERBALIZES THAT HE WANTS TO GO HOME SOON POSSIBLE. STABLE CONDITION. NO SIGNS OF DISTRESS. PATIENT HAD BM DURING THE NIGHT SO DIET ADVANCED TO SOFT DIET. NO SIGNS OF BLEEDING AT SURGICAL SIGHT. IVF RUNNING. SAFETY MEASURES IMPLEMENTED. WILL CONTINUE TO MONITOR THROUGHOUT SHIFT.
[2018-06-06 12:21] VITALS: BP 130/72
--- NOTE | 2018-06-06 12:59 | NUR ---
patient discharged at this time in stable condition, no signs of distress. Discharge packet completed. prescriptions provided to patient. Follow-up appointment made with Dr. Matias for Saturday (06/11/18). is patient's form of transportation. IV-access disconnected. Tele-box returned. Patient discharged from [facility].
== END 2018-06-06 12:50 | disposition home or self-care (01) | DRG 335 ==
LOC: ER 00:15 → TELE 02:30
PROVIDERS: ADMIT Nurse Practitioner Acute Care; ATTEND Hospitalist
PROC: 0D9670Z Drainage of Stomach with Drainage Device, Via Natural or Artificial Opening (ICD-10-PCS; 2018-06-04)
PROC: 0DN84ZZ Release Small Intestine, Percutaneous Endoscopic Approach (ICD-10-PCS; principal; 2018-06-05 10:16)
DX: K56.52 Intestinal adhesions [bands] with complete obstruction (principal); N17.0 Acute kidney failure with tubular necrosis; R18.8 Other ascites; E86.9 Volume depletion, unspecified; R11.10 Vomiting, unspecified; E78.5 Hyperlipidemia, unspecified; E83.42 Hypomagnesemia; F41.9 Anxiety disorder, unspecified; E83.52 Hypercalcemia; I10 Essential (primary) hypertension; K21.9 Gastro-esophageal reflux disease without esophagitis; I73.9 Peripheral vascular disease, unspecified; Z87.891 Personal history of nicotine dependence; Z79.82 Long term (current) use of aspirin; Z90.49 Acquired absence of other specified parts of digestive tract; Z79.899 Other long term (current) drug therapy
CPT/HCPCS: 36415; 70030-TC; 71045; 83690; 83735; 84100; 85025; 85730; 93005; A4663; G0378; J0330; J0690; J1100; J1170; J1885; J2060; J2405; J2710; J3475; J3490; J7030; J7120